=== PATIENT | female | born 1980 | race Caucasian/White ===

== ENCOUNTER 2019-02-15 17:38 | Emergency (ER) | payer BC, OTHER ==
[~2019-02-15] VITALS: Ht 165.1 cm; Wt 60.0 kg
[~2019-02-15 17:38] MED LIST: ONDA4TAB6 PO
[2019-02-15] MEDS ORDERED: methylPREDNISolone sod succ 125mg/2ml vial IV ONE (17:45)
[2019-02-15] MEDS ORDERED: ipratropium/albuterol 3ml nebule NEB ONE ×2 (17:45→18:55)
[2019-02-15] MEDS ORDERED: albuterol 2.5 MG/3 ML nebule NEB ONE (17:45)
[2019-02-15 18:13] LABS: BASOPHILS # (AUTO) 0.1 X10'3 (0-0.2); BASOPHILS % (AUTO) 0.4 % (0-1); EOSINOPHILS # (AUTO) 0.2 X10'3 (0-0.9); EOSINOPHILS % (AUTO) 1.2 % (0-6); HEMATOCRIT 41.3 % (35.0-45.0); HEMOGLOBIN 13.9 g/dl (12.0-16.0); LYMPHOCYTES # (AUTO) 2.2 X10'3 (1.1-4.8); LYMPHOCYTES % (AUTO) 13.8 % (21-51); MEAN CORPUSCULAR HEMOGLOBIN 29.4 PG (27.0-31.0); MEAN CORPUSCULAR HGB CONC 33.7 g/dL (33.0-36.5); MEAN PLATELET VOLUME 8.7 FL (7.4-10.4); NEUTROPHILS # (AUTO) 12.6 X10'3 (1.8-7.7); NEUTROPHILS % (AUTO) 78.6 % (42-75); PLATELET COUNT 368 X10'3 (140-440); RED BLOOD COUNT 4.74 X10'6 (4.20-5.60); RED CELL DISTRIBUTION WIDTH 13.4 % (11.5-14.5)
[2019-02-15 18:16] LABS: D-DIMER 0.47 MG/L FEU (0-0.50)
[2019-02-15 18:20] LABS: ALANINE AMINOTRANSFERASE 18 U/L (12-78); ALBUMIN 4.3 G/DL (3.4-5.0); ALBUMIN/GLOBULIN RATIO 1.1 (1.1-1.5); ALKALINE PHOSPHATASE 58 IU/L (46-116); ANION GAP 12 (8-16); ASPARTATE AMINO TRANSFERASE 15 U/L (10-37); BILIRUBIN,TOTAL 0.8 MG/DL (0.1-1.0); BLOOD UREA NITROGEN 6 MG/DL (7-18); BUN/CREATININE RATIO 9.4 (6.6-38.0); CHLORIDE 107 MMOL/L (99-107); CREATININE 0.64 MG/DL (0.40-0.90); GLUCOSE 116 MG/DL (70-104); POTASSIUM 3.3 MMOL/L (3.5-5.1); SODIUM 142 MMOL/L (135-145); TOTAL PROTEIN 8.2 G/DL (6.4-8.2); eGFR > 90 ML/MIN
[2019-02-15] MEDS ORDERED: ALBU8.5H8 IH (19:32)
[2019-02-15] MEDS ORDERED: AZIT250T PO (19:32)
[2019-02-15] MEDS ORDERED: BENZ-16 PO (19:32)
[2019-02-15] MEDS ORDERED: PRED10TA PO (19:32)
[2019-02-15 19:35] VITALS: BP 113/56
== END 2019-02-15 19:45 | disposition home or self-care (01) ==
LOC: ER 17:39
DX: J45.901 Unspecified asthma with (acute) exacerbation (principal); F12.90 Cannabis use, unspecified, uncomplicated; Z98.890 Other specified postprocedural states; Z88.2 Allergy status to sulfonamides; Z88.1 Allergy status to other antibiotic agents; Z91.040 Latex allergy status; Z79.899 Other long term (current) drug therapy
CPT/HCPCS: 36415; 71045; 80053; 83605; 84484; 85025; 85379; 85610; 93005; 94640; 94760; 96374; 99284; J2930

== ENCOUNTER 2021-03-31 07:32 | Emergency (ER) | payer BC ==
[~2021-03-31] VITALS: Ht 170.2 cm; Wt 56.8 kg
[~2021-03-31 07:32] MED LIST changes: +ALBU8.5H17 IH; +PRED10TA PO
[2021-03-31] MEDS ORDERED: LORazepam 2 mg/ml vial IV ONE ×2 (07:45→08:40)
[2021-03-31] MEDS ORDERED: levetiracetam inj 1,000 MG in normal saline 100ml IV soln 90 ML IV ONE (07:55)
[2021-03-31] MEDS ORDERED: normal saline 1000ml 1,000 ML IV ONE (07:55)
[2021-03-31 08:22] LABS: BASOPHILS % (AUTO) 0.6 % (0-1); EOSINOPHILS # (AUTO) 0.3 X10'3 (0-0.9); EOSINOPHILS % (AUTO) 4.1 % (0-6); HEMATOCRIT 39.3 % (35.0-45.0); HEMOGLOBIN 12.9 g/dl (12.0-16.0); LYMPHOCYTES # (AUTO) 1.8 X10'3 (1.1-4.8); MEAN CORPUSCULAR HEMOGLOBIN 28.8 PG (27.0-31.0); MEAN CORPUSCULAR HGB CONC 32.8 g/dL (33.0-36.5); MEAN CORPUSCULAR VOLUME 87.7 FL (78-98); MEAN PLATELET VOLUME 8.4 FL (7.4-10.4); MONOCYTES # (AUTO) 0.6 X10'3 (0-0.9); MONOCYTES % (AUTO) 8.4 % (2-12); NEUTROPHILS # (AUTO) 4.5 X10'3 (1.8-7.7); NEUTROPHILS % (AUTO) 61.9 % (42-75); PLATELET COUNT 365 X10'3 (140-440); RED BLOOD COUNT 4.48 X10'6 (4.20-5.60); RED CELL DISTRIBUTION WIDTH 13.7 % (11.5-14.5); WHITE BLOOD COUNT 7.2 X10'3 (4.5-11.0)
--- NOTE | 2021-03-31 08:45 | NUR ---
ALICIA WHITTAKER AND ATVAL PER VO DR. DAVALOS. 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
--- NOTE | 2021-03-31 08:55 | NUR ---
PT ABLE TO BEND KNEES AND LIFT BUTTOCKS TO PLACE BEDPAN UNDERNEATH PT WHILE PT HAVE PARTIAL SEIZURE/MUSCLE SPASMS ACTIVITY.
[2021-03-31 09:01] LABS: URINE HCG NEGATIVE (NEG)
[2021-03-31 09:07] LABS: URINE AMPHETAMINE SCREEN NEGATIVE (Neg); URINE BARBITUATE SCREEN NEGATIVE (Neg); URINE BENZODIAZEPINES SCREEN NEGATIVE (Neg); URINE CANNABINOID SCREEN POSITIVE (Neg); URINE COCAINE SCREEN NEGATIVE (Neg); URINE METHADONE SCREEN NEGATIVE (Neg); URINE OPIATE SCREEN NEGATIVE (Neg); URINE PHENCYCLIDINE SCREEN NEGATIVE (Neg)
[2021-03-31 09:08] LABS: CLARITY,URINE CLEAR (Clear); COLOR,URINE YELLOW (Yellow); GLUCOSE, URINE Negative (Neg); KETONES,URINE Negative (Neg); NITRITES, URINE NEGATIVE (Neg); OCCULT BLOOD,URINE NEGATIVE (Neg); PH,URINE 6.5 (4.8-8.0); PROTEIN,URINE Negative (Neg); UA COLLECTION TYPE OTHER; UROBILINOGEN,URINE 0.2 E.U/dL (0.2-1.0)
[2021-03-31 09:09] LABS: LEUKOCYTE ESTERASE ,URINE NEGATIVE (Neg)
[2021-03-31 09:22] LABS: ALANINE AMINOTRANSFERASE 16 U/L (12-78); ALBUMIN 3.4 G/DL (3.4-5.0); ALKALINE PHOSPHATASE 59 IU/L (46-116); ANION GAP 13 (8-16); ASPARTATE AMINO TRANSFERASE 18 U/L (10-37); BILIRUBIN,TOTAL 0.3 MG/DL (0.1-1.0); BLOOD UREA NITROGEN 7 MG/DL (7-18); CALCIUM 8.8 MG/DL (8.5-10.1); CHLORIDE 110 MMOL/L (99-107); GLUCOSE 91 MG/DL (70-104); POTASSIUM 4.2 MMOL/L (3.5-5.1); SODIUM 142 MMOL/L (135-145); TOTAL CARBON DIOXIDE 18.7 MMOL/L (24-32); TOTAL PROTEIN 6.9 G/DL (6.4-8.2); eGFR > 90 ML/MIN
[2021-03-31 09:23] LABS: MAGNESIUM 1.9 MG/DL (1.5-2.4)
--- NOTE | 2021-03-31 10:04 | NUR ---
VO from Dr. Lora to adminsiter IV ativan
--- NOTE | 2021-03-31 10:20 | NUR ---
VO Dr. 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
[2021-03-31 16:50] VITALS: BP 95/61
== END 2021-03-31 16:52 | disposition home or self-care (01) ==
LOC: ER 07:33
DX: R56.9 Unspecified convulsions (principal); J45.909 Unspecified asthma, uncomplicated; F12.90 Cannabis use, unspecified, uncomplicated; Z87.440 Personal history of urinary (tract) infections; Z98.890 Other specified postprocedural states; Z88.2 Allergy status to sulfonamides; Z88.8 Allergy status to other drugs, medicaments and biological substances; Z91.040 Latex allergy status; Z79.899 Other long term (current) drug therapy
CPT/HCPCS: 36415; 70450; 80053; 80305; 81003; 81025; 82948; 83605; 83735; 84145; 84146; 85025; 95816; 96361; 96374; 96375; 96376; 99285; J1953; J2060; J7030

== ENCOUNTER 2021-10-31 09:37 | Emergency (ER) | payer BC ==
[~2021-10-31] VITALS: Ht 170.2 cm; Wt 61.8 kg
[2021-10-31] MEDS ORDERED: ondansetron 4mg rapidly disintigrating tab PO ONE (11:10)
[2021-10-31] MEDS ORDERED: ONDA4TAB12 PO (11:18)
[2021-10-31 11:21] VITALS: BP 109/69
[2021-10-31] MEDS ORDERED: acetaminophen 325mg tablet PO ONE (11:30)
== END 2021-10-31 11:41 | disposition home or self-care (01) ==
LOC: ER 09:38
DX: S06.0X1A Concussion with loss of consciousness of 30 minutes or less, initial encounter (principal); E01.0 Iodine-deficiency related diffuse (endemic) goiter; J45.909 Unspecified asthma, uncomplicated; F32.9 Major depressive disorder, single episode, unspecified; Z87.81 Personal history of (healed) traumatic fracture; Z88.2 Allergy status to sulfonamides; Z79.899 Other long term (current) drug therapy; W19.XXXA Unspecified fall, initial encounter; Y93.89 Activity, other specified; Y92.89 Other specified places as the place of occurrence of the external cause; Y99.8 Other external cause status
CPT/HCPCS: 99284

== ENCOUNTER 2022-11-13 16:18 | Emergency (ER) | payer BC ==
[~2022-11-13] VITALS: Ht 167.6 cm; Wt 63.6 kg
[~2022-11-13 16:18] MED LIST changes: +ONDA4TAB12 PO
[2022-11-13 16:29] VITALS: BP 123/68
--- NOTE | 2022-11-13 17:53 | NUR ---
AT BEDSIDE WITH ERWIN WINKLER FOR EXAM OF WOUND.
[2022-11-13] MEDS ORDERED: EPIN0.3P3 IM (18:04)
== END 2022-11-13 18:09 | disposition home or self-care (01) ==
LOC: ER 16:19
DX: L02.31 Cutaneous abscess of buttock (principal); T50.995A Adverse effect of other drugs, medicaments and biological substances, initial encounter; J45.909 Unspecified asthma, uncomplicated; F32.9 Major depressive disorder, single episode, unspecified; F12.90 Cannabis use, unspecified, uncomplicated; Z87.891 Personal history of nicotine dependence; Z98.890 Other specified postprocedural states; Y92.89 Other specified places as the place of occurrence of the external cause
CPT/HCPCS: 99282; 99283